=== PATIENT | female | born 1995 | race Hispanic/Latino ===

== ENCOUNTER 2019-07-21 09:28 | Emergency (ER) | payer BC ==
[2019-07-21 10:52] LABS: Absolute Lymphocytes (CBC) 1.5 K/uL (0.7-4.9); Basophils % 0.5 % (0-1.3); Hematocrit 39.9 % (36.0-45.0); Lymphocytes % 11.4 % (15.3-44.8); MPV 8.1 fL (7.6-11.3)
[2019-07-21 11:09] LABS: Potassium 4.1 mmol/L (3.5-5.1)
[2019-07-21 11:34] LABS: Urine Bacteria <20 /HPF (<20); Urine Culture Reflex Order NOT NEEDED
[2019-07-21 12:38] LABS: Thyroid Stimulating Hormone 3.9 uIU/mL (0.360-3.740)
[2019-07-21 13:10] LABS: Urine Blood 2+ (NEG); Urine Glucose NEGATIVE (NEG); Urine Protein 1+ (NEG); Urine Specific Gravity >1.030 (1.005-1.030); Urine pH 5.5 (5.0-7.0)
[2019-07-21 13:10] LABS: Urine Specific Gravity >1.030 (1.005-1.030)
--- NOTE | 2019-07-21 13:20 | ER ---
Nurse's Notes [facility] Name: Buddy Saunders Age: 24 yrs Sex: Female : 1995 Arrival Date: 07/21/2019 Time: 09:32 Bed 16 Private MD: Diagnosis: Volume depletion;Orthostatic hypotension Presentation: 07/20 09:35 Chief complaint: EMS states: called out for a syncopal episode at the gym,felt she was em about to faint and sat in the chair and went out for a little bit, has had similar episode about 3 years ago, BP on scene was 90s systolic, BGL 150, pt denies N/V, reports weakness, EMS gave 500 mL NS IV via 18 GA LAC. Coronavirus screen: Proceed with normal triage. Patient denies a cough. Patient denies shortness of breath or difficulty breathing. Patient denies measured and/or subjective temperature greater than 100.4F prior to today's visit. Patient denies travel on a cruise ship or to a country the [facility] currently lists as an affected area. Patient denies contact with known and/or suspected case of COVID-19. Ebola Screen: Patient negative for fever greater than or equal to 101.5 degrees Fahrenheit, and additional compatible Ebola Virus Disease symptoms Patient denies exposure to infectious person. Patient denies travel to an Ebola-affected area in the 21 days before illness onset. No symptoms or risks identified at this time. Initial Sepsis Screen: Does the patient meet any 2 criteria? HR > 90 bpm. No. Patient's initial sepsis screen is negative. Does the patient have a suspected source of infection? No. Patient's initial sepsis screen is negative. Risk Assessment: Do you want to hurt yourself or someone else? Patient reports no desire to harm self or others. Onset of symptoms was July 21, 2019. 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 - Social history:: Smoking status: Patient denies any tobacco usage or history of. Screenin:41 Abuse screen: Denies threats or abuse. Nutritional screening: No deficits noted. em Tuberculosis screening: No symptoms or risk factors identified. Fall Risk None identified. Assessment: 09:35 General: Appears in no apparent distress. comfortable, Behavior is calm, cooperative, em appropriate for age. Pain: Denies pain. Neuro: Level of Consciousness is awake, alert, obeys commands, Oriented to person, place, time, situation, Appropriate for age Reports a syncopal episode weakness Denies blurred vision dizziness, headache. Cardiovascular: Capillary refill < 3 seconds Patient's skin is warm and dry. Rhythm is sinus arrythmia. Respiratory: Airway is patent Respiratory effort is even, unlabored, Respiratory pattern is regular, symmetrical. GI: Abdomen is round non-distended, Patient currently denies nausea, vomiting. : Denies burning with urination. Derm: Skin is intact, is healthy with good turgor, Skin is pink, warm \T\ dry. Musculoskeletal: Capillary refill < 3 seconds, Range of motion: intact in all extremities. 10:40 Reassessment: Patient appears in no apparent distress at this time. Patient and/or em family updated on plan of care and expected duration. Pain level reassessed. Patient is alert, oriented x 3, equal unlabored respirations, skin warm/dry/pink. Patient denies pain at this time. Patient states feeling better. 11:40 Reassessment: Patient appears in no apparent distress at this time. Patient and/or em family updated on plan of care and expected duration. Pain level reassessed. Patient is alert, oriented x 3, equal unlabored respirations, skin warm/dry/pink. 13:02 Reassessment: Patient appears in no apparent distress at this time. Patient and/or em family updated on plan of care and expected duration. Pain level reassessed. Patient is alert, oriented x 3, equal unlabored respirations, skin warm/dry/pink. Vital Signs: 09:35 BP 102 / 76; Pulse 97; Resp 18; Pulse Ox 99% on R/A; em 10:20 Temp 98.0; Weight 82.1 kg; Height 5 ft. 2 in. (157.48 cm); em 10:40 BP 113 / 69 Supine; Pulse 83; em 10:42 BP 116 / 82 Sitting; Pulse 67; em 10:44 BP 124 / 91 Standing; Pulse 88; em 12:56 BP 118 / 82 Supine; Pulse 72; em 12:58 BP 120 / 69 Sitting; Pulse 75; em 13:00 BP 123 / 87; Pulse 74; em 10:20 Body Mass Index 33.10 (82.10 kg, 157.48 cm) em ED Course: 09:32 Patient arrived in ED. em1 09:35 Kirk Heath, RN is Primary Nurse. em 09:39 Triage completed. em 09:40 Arm band placed on. em 09:41 Patient has correct armband on for positive identification. Placed in gown. Bed in low em position. Call light in reach. Pulse ox on. NIBP on. 09:41 Maintain EMS IV. Dressing intact. Good blood return noted. Site clean \T\ dry. Gauge \T\ em site: 18 LAC. 09:53 Lucinda Brandon [facility]C [facility]. snw 09:53 Chris Baker MD is Attending Physician. snw 13:03 No provider procedures requiring assistance completed. em 13:12 IV discontinued, intact, bleeding controlled, No redness/swelling at site. Pressure em dressing applied. Administered Medications: 10:48 Drug: NS 0.9% 1000 ml Route: IV; Rate: 1 bolus; Site: left antecubital; em 13:26 Follow up: IV Status: Completed infusion; IV Intake: 1000ml em Intake: 13:26 IV: 1000ml; Total: 1000ml. em Outcome: 13:19 Discharge ordered by . snw 13:35 Discharged to home ambulatory. em 13:35 Condition: good 13:35 Discharge instructions given to patient, Instructed on discharge instructions, follow up and referral plans. Demonstrated understanding of instructions, follow-up care. 13:36 Patient left the ED. em Signatures: Lucinda Brandon FNP-C STANDARDS ENGINEER-Csnw Kirk Heath RN RN em Ronni Saunders em1
--- NOTE | 2019-07-21 13:20 | EDPHYS ---
Physician Documentation [facility] Name: Buddy Saunders Age: 24 yrs Sex: Female : 1995 Arrival Date: 07/21/2019 Time: 09:32 Bed 16 Private MD: ED Physician Chris Baker HPI: 07/20 10:03 This 24 yrs old Female presents to ER via EMS with complaints of syncope. snw 10:03 The patient has experienced syncope, collapsed, lost consciousness. Onset: The snw symptoms/episode began/occurred suddenly. Duration: This was a single episode, that lasted an unknown period of time. 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 Associated injury: The patient did not suffer any apparent associated injury. Current symptoms: Currently, the patient is not experiencing any symptoms. The patient has experienced similar episodes in the past, and the symptoms today are exactly the same, to previous pt states she has been extensively worked up for hypotension and syncope and was told she didn't get enough salt and water. 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 - Social history:: Smoking status: Patient denies any tobacco usage or history of. ROS: 10:30 Constitutional: Negative for fever, chills, and weight loss, Eyes: Negative for injury, snw pain, redness, and discharge, ENT: Negative for injury, pain, and discharge, Neck: Negative for injury, pain, and swelling, Cardiovascular: Negative for chest pain, palpitations, and edema, Respiratory: Negative for shortness of breath, cough, wheezing, and pleuritic chest pain, Abdomen/GI: Negative for abdominal pain, nausea, vomiting, diarrhea, and constipation, Back: Negative for injury and pain, : Negative for injury, bleeding, discharge, and swelling, MS/Extremity: Negative for injury and deformity, Skin: Negative for injury, rash, and discoloration. 10:30 Psych: Negative for depression, anxiety, suicide ideation, homicidal ideation, and hallucinations. 10:30 Neuro: Positive for syncope. Exam: 10:30 Constitutional: This is a well developed, well nourished patient who is awake, alert, snw and in no acute distress. Head/Face: Normocephalic, atraumatic. Eyes: Pupils equal round and reactive to light, extra-ocular motions intact. Lids and lashes normal. Conjunctiva and sclera are non-icteric and not injected. Cornea within normal limits. Periorbital areas with no swelling, redness, or edema. ENT: Nares patent. No nasal discharge, no septal abnormalities noted. Tympanic membranes are normal and external auditory canals are clear. Oropharynx with no redness, swelling, or masses, exudates, or evidence of obstruction, uvula midline. Mucous membranes moist. Neck: Trachea midline, no thyromegaly or masses palpated, and no cervical lymphadenopathy. Supple, full range of motion without nuchal rigidity, or vertebral point tenderness. No Meningismus. Chest/axilla: Normal chest wall appearance and motion. Nontender with no deformity. No lesions are appreciated. Cardiovascular: Regular rate and rhythm with a normal S1 and S2. No gallops, murmurs, or rubs. Normal PMI, no JVD. No pulse deficits. Respiratory: Lungs have equal breath sounds bilaterally, clear to auscultation and percussion. No rales, rhonchi or wheezes noted. No increased work of breathing, no retractions or nasal flaring. Abdomen/GI: Soft, non-tender, with normal bowel sounds. No distension or tympany. No guarding or rebound. No evidence of tenderness throughout. Back: No spinal tenderness. No costovertebral tenderness. Full range of motion. Skin: Warm, dry with normal turgor. Normal color with no rashes, no lesions, and no evidence of cellulitis. MS/ Extremity: Pulses equal, no cyanosis. Neurovascular intact. Full, normal range of motion. Neuro: Awake and alert, GCS 15, oriented to person, place, time, and situation. Cranial nerves II-XII grossly intact. Motor strength 5/5 in all extremities. Sensory grossly intact. Cerebellar exam normal. Normal gait. Psych: Awake, alert, with orientation to person, place and time. Behavior, mood, and affect are within normal limits. Vital Signs: 09:35 BP 102 / 76; Pulse 97; Resp 18; Pulse Ox 99% on R/A; em 10:20 Temp 98.0; Weight 82.1 kg; Height 5 ft. 2 in. (157.48 cm); em 10:40 BP 113 / 69 Supine; Pulse 83; em 10:42 BP 116 / 82 Sitting; Pulse 67; em 10:44 BP 124 / 91 Standing; Pulse 88; em 12:56 BP 118 / 82 Supine; Pulse 72; em 12:58 BP 120 / 69 Sitting; Pulse 75; em 13:00 BP 123 / 87; Pulse 74; em 10:20 Body Mass Index 33.10 (82.10 kg, 157.48 cm) em MDM: 10:02 Patient medically screened. snw 13:25 Data reviewed: vital signs, nurses notes. Data interpreted: Pulse oximetry: on room air snw is 99 %. Interpretation: normal. Counseling: I had a detailed discussion with the patient and/or guardian regarding: the historical points, exam findings, and any diagnostic results supporting the discharge/admit diagnosis, lab results, the need for outpatient follow up, to return to the emergency department if symptoms worsen or persist or if there are any questions or concerns that arise at home. Special discussion: Based on the history and exam findings, there is no indication for further emergent testing or inpatient evaluation. I discussed with the patient/guardian the need to see the neurologist for further evaluation of the symptoms. I discussed with the patient/guardian the need to see the primary care provider for further evaluation of the symptoms. 07/20 10:00 Order name: CBC with Diff; Complete Time: 11:05 snw 07/20 10:00 Order name: Chem 7; Complete Time: 11:11 snw 07/20 10:00 Order name: Urine Sodium Random; Complete Time: 11:41 snw 07/20 10:00 Order name: Urine Microscopic Only; Complete Time: 11:41 snw 07/20 10:09 Order name: TSH; Complete Time: 13:11 snw 07/20 11:03 Order name: Urine Dipstick--Ancillary (enter results); Complete Time: 13:11 em1 07/20 10:00 Order name: Orthostatics; Complete Time: 11:04 snw 07/20 10:00 Order name: Urine Test (obtain specimen); Complete Time: 11:02 snw 07/20 10:00 Order name: Urine Dipstick-Ancillary (obtain specimen); Complete Time: 11:02 snw 07/20 11:04 Order name: Urine --Ancillary (enter results); Complete Time: 13:11 em1 07/20 12:41 Order name: T4 Free; Complete Time: 13:11 EDMS Administered Medications: 10:48 Drug: NS 0.9% 1000 ml Route: IV; Rate: 1 bolus; Site: left antecubital; em 13:26 Follow up: IV Status: Completed infusion; IV Intake: 1000ml em Disposition: 15:25 Co-signature as Attending Physician, Chris Baker MD I agree with the assessment and kdr plan of care. Disposition: 07/21/19 13:19 Discharged to Home. Impression: Volume depletion, Orthostatic hypotension. - Condition is Stable. - Discharge Instructions: Dehydration, Adult, Orthostatic Hypotension, Rehydration, Adult. - Medication Reconciliation Form, Thank You Letter, Antibiotic Education, Prescription Opioid Use form. - Follow up: Emergency Department; When: As needed; Reason: Worsening of condition. Follow up: Private Physician; When: 2 - 3 days; Reason: Recheck today's complaints, Continuance of care, Re-evaluation by your physician. - Problem is an ongoing problem. - Symptoms are unchanged. Signatures: Dispatcher [facility] Chris Baker MD MD kdr Therrien, Shelly, CONSUMER SAFETY INSPECTOR-C CONSUMER SAFETY INSPECTOR-Kirk Greenberg, RN RN em Corrections: (The following items were deleted from the chart) 13:36 13:19 07/21/2019 13:19 Discharged to Home. Impression: Volume depletion; Orthostatic em hypotension. Condition is Stable. Forms are Medication Reconciliation Form, Thank You Letter, Antibiotic Education, Prescription Opioid Use. Follow up: Emergency Department; When: As needed; Reason: Worsening of condition. Follow up: Private Physician; When: 2 - 3 days; Reason: Recheck today's complaints, Continuance of care, Re-evaluation by your physician. Problem is an ongoing problem. Symptoms are unchanged. snw
[2019-07-21 14:02] VITALS: TEMP 98; O2SAT 99
[2019-07-21 14:09] VITALS: BP 123/87
--- NOTE | 2019-07-22 11:46 | EKG ---
Test Date: 2019-07-21 Test Time: 09:57:54 Career Services Coordinator: ROBERT MEASUREMENT RESULTS: Intervals: Rate: 80 PA: 148 QRSD: 80 QT: 370 QTc: 426 Sarles: P: 67 PA: 148 QRS: 33 T: 17 INTERPRETIVE STATEMENTS: Sinus rhythm with marked sinus arrhythmia with junctional escape complexes Possible Left atrial enlargement Borderline ECG No previous ECG available for comparison Electronically Signed On 07-22-19 11:43:22 CDT by Dimitris Lange
== END 2019-07-21 13:36 | disposition home or self-care (01) ==
LOC: ER 09:28
DX: E86.9 Volume depletion, unspecified (principal); I95.1 Orthostatic hypotension; Z88.4 Allergy status to anesthetic agent
CPT/HCPCS: 36415; 80048; 81003; 81015; 81025; 84300; 84439; 84443; 85025; 93005; 96360; 96361; 99284